=== PATIENT | male | born 1965 | race African-American/Black ===

== ENCOUNTER 2017-09-20 01:20 | Emergency (ER) | payer MEDICAID, OTHER ==
[~2017-09-20] VITALS: Ht 170.2 cm; Wt 95.3 kg
[2017-09-20 02:35] LABS: Basophils # (auto) 0.1 uL; Basophils % (auto) 1.1 % (0.0-2.0); Eosinophils # (auto) 0.2 uL; Eosinophils % (auto) 2.7 % (0.0-7.0); Hematocrit 41.1 % (41.0-53.0); Lymphocytes # (auto) 2.2 uL; Lymphocytes % (auto) 32.8 % (10.0-50.0); Mean Corpuscular Hemoglobin 30.7 pg (28.0-32.0); Mean Corpuscular Hgb Conc. 34.1 g/dL (32.0-36.0); Mean Corpuscular Volume 89.9 fL (80.0-100.0); Mean Platelet Volume 7.6 fL (6.9-10.8); Monocytes # (auto) 0.6 uL; Monocytes % (auto) 9.1 % (0.0-12.0); Neutrophils # (auto) 3.6 uL; Neutrophils % (auto) 54.3 % (37.0-80.0); Platelet Count (auto) 216 10^3/uL (140-450); Red Cell Distribution Width 13.6 % (11.8-14.3); White Blood Cell 6.6 10^3/uL (4.4-10.8)
[2017-09-20 03:05] LABS: Albumin 3.4 g/dL (3.4-5.0); BUN/Creatinine Ratio 9.2; Calcium 8.6 mg/dL (8.5-10.1); Potassium 3.2 mmol/L (3.5-5.1)
[2017-09-20 03:07] LABS: Bilirubin, Total 0.5 mg/dL (0.2-1.0); Total Protein 7.5 g/dL (6.4-8.2)
[2017-09-20 03:51] LABS: Temperature: 22.4 C (20.0-25.0)
[2017-09-20] MEDS ORDERED: cloNIDine HCL 0.1 MG TAB ONE (06:22)
[2017-09-20] MEDS ORDERED: SODIUM CHLORIDE 0.9% 500 ML IV ONE (06:30)
[2017-09-20] MEDS ORDERED: POTASSIUM CHL 20 Meq TABLET PO ONE (06:30)
[2017-09-20] MEDS ORDERED: cloNIDine HCL 0.1 MG TAB PO ONE (06:30)
[2017-09-20 07:45] VITALS: BP 143/97
== END 2017-09-20 07:49 | disposition home or self-care (01) ==
LOC: ER 01:20
DX: I13.0 Hypertensive heart and chronic kidney disease with heart failure and stage 1 through stage 4 chronic kidney disease, or unspecified chronic kidney disease (principal); N18.4 Chronic kidney disease, stage 4 (severe); I50.9 Heart failure, unspecified; R51 Headache
CPT/HCPCS: 36415; 70450; 80053; 83880; 85025

== ENCOUNTER 2019-05-12 18:41 | Emergency (ER) | payer OTHER, MEDICAID ==
[~2019-05-12] VITALS: Ht 167.6 cm; Wt 77.1 kg
[2019-05-12 19:00] VITALS: BP 231/113
== END 2019-05-13 02:24 | disposition left against medical advice (07) ==
LOC: ER 18:42
DX: R03.0 Elevated blood-pressure reading, without diagnosis of hypertension (principal); R51 Headache; Z53.21 Procedure and treatment not carried out due to patient leaving prior to being seen by health care provider
CPT/HCPCS: 70450

== ENCOUNTER 2024-12-06 04:15 | Inpatient (IN) | payer OTHER, MEDICAID ==
[~2024-12-06] VITALS: Ht 167.6 cm; Wt 85.7 kg
[~2024-12-06 04:15] MED LIST: CARV12.544 PO; CINA30TA2 PO; CLON0.2D6 TOP; FLUT50SP EACHNOSTRI; FURO40TA4 PO; LACT10SO3 PO; NIFE1TAB30 PO; PANT40TA57 PO; SUCR5CHW PO; TAMS0.4C39 PO; VALS1TAB57 PO
--- NOTE | 2024-12-06 04:39 | ED.PDOC ---
History of Present Illness HPI Comments 59-year-old male is brought in by ambulance for complaint of shortness a breath, today. Per EMS report patient endorses on sudden unprovoked onset of symptom, this morning. He is reported to have been found with pedal edema, rales, an SpO2 of 81% on room air. En route, patient was placed on CPAP, with SpO2 improving to 100%. Upon arrival to ED, patient still endorses on having difficulty breathing. He has a reported history of CHF, hypertension, and end- stage renal disease, with hemodialysis and peritoneal dialysis on Friday, Friday, and Friday. Patient denies any chest pain, cough, congestion, fever, chills or other associated symptoms or modifiers at this time. Chief Complaint: Shortness of Breath Time Seen by MD: 04:15 Reviewed Notes: Nurses Notes, Wellness Program Administrator Notes, Medications, Allergies Allergies: Coded Allergies: NO KNOWN ALLERGIES (Unverified , 09/20/17) Information Source: Patient, Emergency Med Personnel Mode of Arrival: EMS Severity: Moderate Timing: Hours Duration: Since onset Prehospital treatment: 12 Lead EKG, Voice Instructor, C-Pap Past Medical History PAST MEDICAL HISTORY: CHF, CKF, ESRD (With hemodialysis in peritoneal dialysis on Friday, Friday, and Friday), HTN Surgical History (Other): Right arm fistula, right chest wall Port-A-Cath Family History Family History: Unknown Social History Smoker: Non-Smoker Lives In: Home Respiratory: reports: shortness of breath All Other Systems: Reviewed and Negative (Negative unless otherwise stated above or in HPI) Physical Exam General Appearance: No Apparent Distress, Normal HEENT: Normal ENT Inspection, Pharynx Normal, TMs Normal Neck: Full Range of Motion, Non-Tender, Normal, Normal Inspection Respiratory: Chest Non-Tender, No Accessory Muscle Use, No Respiratory Distress, Rales Cardiovascular: No Edema, No JVD, No Murmur, No Gallop, Normal Peripheral Pulses, Regular Rate/Rhythm Breast Exam: Deferred Gastrointestinal: No Organomegaly, Non Tender, No Pulsatile Mass, Normal Bowel Sounds, Soft Genitalia: Deferred Pelvic: Deferred Rectal: Deferred Extremities: No calf tenderness, Normal capillary refill, Normal inspection, Normal range of motion, Non-tender, No pedal edema Musculoskeletal : Apperance: Normal Neurologic: Alert, fisheries diver II-XII nml as Tested, No Motor Deficits, Normal Affect, Normal Mood, No Sensory Deficits Cerebellar Function: Normal Reflexes: Normal Skin: Dry, Normal Color, Warm Lymphatic: No Adenopathy Was a procedure done? Was a procedure done?: No Differential Dx Considerations may include: CHF exacerbation, fluid retention, upper respiratory infection, viral syndrome, pneumonia, respiratory distress X-Ray, Labs, Meds, VS Vital Signs Date Time Temp Pulse Resp B/P (MAP) Pulse Ox O2 Delivery O2 Flow Rate FiO2 12/06/24 05:19 89 258/147 12/06/24 04:47 279/180 12/06/24 04:43 98 33 100 Bi-Pap+ 30 30 12/06/24 04:42 98.4 98 19 275/180 (211) 100 98.4 12/06/24 04:34 114 12/06/24 04:15 102 126/72 Facial BiPAP Mask 30 12/06/24 04:15 98.4 101 28 126/72 (90) 100 Lab Test 12/06/24 04:56 Range/Units White Blood Count 7.6 4.4-10.8 10^3/uL Red Blood Count 2.65 L 4.5-5.90 10^6/uL Hemoglobin 8.2 L 13.5-17.5 g/dL Hematocrit 24.8 L 41.0-53.0 % Mean Corpuscular Volume 93.6 80.0-100.0 fL Mean Corpuscular Hemoglobin 31.0 28.0-32.0 pg Mean Corpuscular Hemoglobin Concent 33.1 32.0-36.0 g/dL Red Cell Distribution Width 16.2 H 11.8-14.3 % Platelet Count 300 140-450 10^3/uL Mean Platelet Volume 6.5 L 6.9-10.8 fL Neutrophils (%) (Auto) 73.9 37.0-80.0 % Lymphocytes (%) (Auto) 15.5 10.0-50.0 % Monocytes (%) (Auto) 4.8 0.0-12.0 % Eosinophils (%) (Auto) 5.0 0.0-7.0 % Basophils (%) (Auto) 0.8 0.0-2.0 % Neutrophils # (Auto) 5.6 1.6-8.6 10 ^3/uL Lymphocytes # (Auto) 1.2 0.4-5.4 10 ^3/uL Monocytes # (Auto) 0.4 0-1.3 10 ^3/uL Eosinophils # (Auto) 0.4 0-0.8 10 ^3/uL Basophils # (Auto) 0.1 0-0.2 10 ^3/uL Nucleated Red Blood Cells 0.0 % Sodium Level 131 L 136-145 mmol/L Potassium Level 3.8 3.5-5.1 mmol/L Chloride Level 94 L 98-107 mmol/L Carbon Dioxide Level 27 20-31 mmol/L Anion Gap 10 5-15 Blood Urea Nitrogen 37 H 9-23 mg/dL Creatinine 5.42 H 0.700-1.30 mg/dL Glomerular Filtration Rate Calc 11 >90 mL/min BUN/Creatinine Ratio 6.8 L 10.0-20.0 Serum Glucose 110 H 74-106 mg/dL Lactic Acid Level 1.5 0.4-2.0 mmol/L Calcium Level 9.4 8.7-10.4 mg/dL Phosphorus Level 3.8 2.4-5.1 mg/dL Magnesium Level 1.5 L 1.6-2.6 mg/dL Troponin I High Sensitivity 26 </=54 ng/L Current Medications Medications (Trade) Dose Ordered Sig/George Route Start Time Stop Time Status Last Admin Nitroglycerin (Ntrostat Sublingual) 0.4 mg ONCE ONCE SL 12/06/24 04:30 12/06/24 04:31 DC 12/06/24 04:47 Labetalol HCl (Labetalol HCl) 20 mg ONCE ONCE IV 12/06/24 05:15 12/06/24 05:16 DC 12/06/24 05:19 Time of 1ST Reevaluation: 04:45 Reevaluation 1ST: Unchanged Patient Education/Counseling: Diagnosis, Treatment Family Education/Counseling: No Family Present Departure 1 Departure Time of Disposition: 05:47 (Patient with worsening shortness of breath and acute on chronic systolic failure. Patient likely needs dialysis. We will admit patient for further workup) Impression: Primary Impression: Acute dyspnea Additional Impressions: Acute on chronic systolic (congestive) heart failure Acute chest pain Disposition: ADMITTED INPATIENT Admit to: Tele Condition: Serious Critical Care Note Critical Care Time?: Yes Critical care comment: Acute shortness of breath requiring BiPAP Authorized and Performed by: Ralph Harry MD Total critical care time: Approximately 44 minutes Due to a high probability of clinically significant, life threatening deterioration, the patient required my highest level of preparedness to intervene emergently and I personally spent this critical care time directly and personally managing the patient. This critical care time included obtaining a history; examining the patient; pulse oximetry; ordering and review of studies; arranging urgent treatment with development of a management plan; evaluation of patient's response to treatment; frequent reassessment; and, discussions with other providers. This critical care time was performed to assess and manage the high probability of imminent, life-threatening deterioration that could result in multi-organ failure. It was exclusive of separately billable procedures and treating other patients and teaching time. Please see my other sections and the rest of the note for further information on patient assessment and treatment. Stability Stability form required: No Heart Score Heart Score: Heart Score Response (Comments) Value History Moderate Suspicious 1 EKG Repolarization Disturb 1 Age 45-64 1 Risk Factors >3 or Hx ASHD 2 Troponin 1-2 x's Normal limit 1 Total 6 I personally scribed for RALPH HARRY MD ([email or web address]) on 12/06/24 at 04:39. Fawn ctronically submitted by Bill Smith [email or web address]). RALPH HARRY MD Dec 06, 2024 04:39
[2024-12-06 04:43] VITALS: PULSE 98; RESP 33; O2SAT 100
[2024-12-06] MEDS: NITROGLYCERIN 0.4 MG SL TAB SL ONE (04:47)
[2024-12-06 05:09] LABS: Basophils # (auto) 0.1 10 ^3/uL (0-0.2); Eosinophils # (auto) 0.4 10 ^3/uL (0-0.8); Hemoglobin 8.2 g/dL (13.5-17.5); Lymphocytes # (auto) 1.2 10 ^3/uL (0.4-5.4); Monocytes # (auto) 0.4 10 ^3/uL (0-1.3); Neutrophils # (auto) 5.6 10 ^3/uL (1.6-8.6); White Blood Cell 7.6 10^3/uL (4.4-10.8)
[2024-12-06 05:10] LABS: Basophils % (auto) 0.8 % (0.0-2.0); Hematocrit 24.8 % (41.0-53.0); Lymphocytes % (auto) 15.5 % (10.0-50.0); Mean Corpuscular Hgb Conc. 33.1 g/dL (32.0-36.0); Mean Corpuscular Volume 93.6 fL (80.0-100.0); Monocytes % (auto) 4.8 % (0.0-12.0); Neutrophils % (auto) 73.9 % (37.0-80.0); Platelet Count (auto) 300 10^3/uL (140-450); Red Blood Cells 2.65 10^6/uL (4.5-5.90); Red Cell Distribution Width 16.2 % (11.8-14.3)
--- NOTE | 2024-12-06 05:16 | ECG ---
[facility] Test Date: 2024-12-06 Test Time: 04:33:09 Pat Name: SIMONA SUAZO Department: ED Room: 0251T Gender: M [employer] Director: ARNEL : 1965 Requested By: RALPH ABDALLA Order Number: [id number] Reading MD: Tyler Tomas Measurements Intervals [place] Rate: 118 P: 62 CO: 145 QRS: -60 QRSD: 104 T: 57 QT: 335 QTc: 470 Interpretive Statements Sinus tachycardia Left anterior fascicular block Anterior infarct, old Borderline ST depression, lateral leads ST elevation, consider inferior injury Baseline wander in lead(s) III Electronically Signed On 12-11-2024 17:09:33 PST by Tyler Tomas Please click the below link to view image of tracing.
[2024-12-06 05:17] LABS: Potassium 3.8 mmol/L (3.5-5.1)
[2024-12-06 05:18] LABS: Anion Gap 10 (5-15); Calcium 9.4 mg/dL (8.7-10.4); Carbon Dioxide 27 mmol/L (20-31)
[2024-12-06] MEDS: LABETALOL HCL 20 MG/4 ML VL IV ONE (05:19)
[2024-12-06 05:23] LABS: BUN/Creatinine Ratio 6.8 (10.0-20.0)
[2024-12-06 05:24] LABS: Blood Urea Nitrogen 37 mg/dL (9-23); Chloride 94 mmol/L (98-107); Glucose 110 mg/dL (74-106); Sodium 131 mmol/L (136-145)
[2024-12-06 05:25] LABS: Phosphorus 3.8 mg/dL (2.4-5.1)
[2024-12-06 05:41] LABS: Magnesium 1.5 mg/dL (1.6-2.6)
--- NOTE | 2024-12-06 05:43 | DVH ---
CHEST RADIOGRAPH Indication: sob Technique: Single frontal view of the chest was obtained COMPARISON: None FINDINGS: Lines and Tubes: Right tunneled central venous catheter in satisfactory position. Lungs: Diffuse congestion Pleura: No effusion. No pneumothorax. Cardiomediastinal contours: Cardiomegaly Bones: Unremarkable IMPRESSION: Pulmonary vascular congestion.
[2024-12-06] MEDS: MAGNESIUM SULFATE 1GM/100ML 100 ML IV SCH (06:51)
--- NOTE | 2024-12-06 07:25 | DVHHP2 ---
History of Present Illness Reason for Visit: Shortness of breath with chest pain History of Present Illness Crow Deleon SR is a 59-year-old male with past medical history of hypertension, CHF, ESRD on HD (M/W/F), right upper arm fistula, right chest wall Port-A-Cath, appendectomy, and PD catheter that was placed in 2019 who presents to the ED with shortness of breath, chest pain, and pedal edema. Patient's Omaira is at the bedside and states that he woke up short of breath around 3:00 a.m. this morning. She reports that he has been receiving his dialysis without missing any appointments. Patient also reports that he takes iron pills which we maybe why his stool is black. Patient denies any fever, chills, recent trauma or injury, lightheadedness, weakness, dizziness, abdominal pain, nausea, vomiting, and diarrhea. Patient's Omaira states that he had the PD cath placed in and cath is still present because recently he had peritonitis and they had stopped using the PD cath. She also reports that the dialysis cath was supposed to be temporary. Patient denies having any bloody or dark stool however RN at bedside states that she saw dark tarry stool. Cardiovascular: HTN Renal/: Chronic renal failure Past Surgical History: Appendectomy, Other (Right upper arm fistulaRight chest wall Port-A-Cath PD cath placed in 2019) Family History: Other (Mom with heart disease) Smoke: No ALCOHOL: occassional Drugs: None Lives: with Family Domestic Violence: Neg Review of Systems Respiratory: Shortness of breath Cardiovascular: Chest Pain Allergies: Coded Allergies: NO KNOWN ALLERGIES (Unverified , 09/20/17) Medications Current Medications Medications Dose Ordered Sig/George Route Start Time Stop Time Status Last Admin Dose Admin Magnesium Sulfate/ Dextrose 100 ml @ 100 mls/hr Q1H IV 12/06/24 06:45 12/06/24 08:44 12/06/24 06:51 100 MLS/HR Exam Vital Signs Vital Signs Date Time Temp Pulse Resp B/P (MAP) Pulse Ox O2 Delivery O2 Flow Rate FiO2 12/06/24 07:17 76 205/98 Facial BiPAP Mask 30 12/06/24 06:00 98.2 22 100 98.2 General Appearance: Alert, Oriented X3, Cooperative, mild distress HEENT: Atraumatic, PERRLA, EOMI Respiratory: Normal air movement Cardiovascular: Regular rate, Normal S1, Normal S2, No murmurs Abdominal: Normal bowel sounds, Soft, No tenderness, No hepatospenomegaly, No masses Extremities: No cyanosis Skin: No significant lesion Neuro: Normal speech, Normal tone, Sensation intact Psych/Mental Status: Mental status NL, Mood NL Labs/Xrays Labs Test 12/06/24 05:59 12/06/24 04:56 Range/Units Troponin I High Sensitivity 33 </=54 ng/L White Blood Count 7.6 4.4-10.8 10^3/uL Red Blood Count 2.65 L 4.5-5.90 10^6/uL Hemoglobin 8.2 L 13.5-17.5 g/dL Hematocrit 24.8 L 41.0-53.0 % Mean Corpuscular Volume 93.6 80.0-100.0 fL Mean Corpuscular Hemoglobin 31.0 28.0-32.0 pg Mean Corpuscular Hemoglobin Concent 33.1 32.0-36.0 g/dL Red Cell Distribution Width 16.2 H 11.8-14.3 % Platelet Count 300 140-450 10^3/uL Mean Platelet Volume 6.5 L 6.9-10.8 fL Neutrophils (%) (Auto) 73.9 37.0-80.0 % Lymphocytes (%) (Auto) 15.5 10.0-50.0 % Monocytes (%) (Auto) 4.8 0.0-12.0 % Eosinophils (%) (Auto) 5.0 0.0-7.0 % Basophils (%) (Auto) 0.8 0.0-2.0 % Neutrophils # (Auto) 5.6 1.6-8.6 10 ^3/uL Lymphocytes # (Auto) 1.2 0.4-5.4 10 ^3/uL Monocytes # (Auto) 0.4 0-1.3 10 ^3/uL Eosinophils # (Auto) 0.4 0-0.8 10 ^3/uL Basophils # (Auto) 0.1 0-0.2 10 ^3/uL Nucleated Red Blood Cells 0.0 % Sodium Level 131 L 136-145 mmol/L Potassium Level 3.8 3.5-5.1 mmol/L Chloride Level 94 L 98-107 mmol/L Carbon Dioxide Level 27 20-31 mmol/L Anion Gap 10 5-15 Blood Urea Nitrogen 37 H 9-23 mg/dL Creatinine 5.42 H 0.700-1.30 mg/dL Glomerular Filtration Rate Calc 11 >90 mL/min BUN/Creatinine Ratio 6.8 L 10.0-20.0 Serum Glucose 110 H 74-106 mg/dL Lactic Acid Level 1.5 0.4-2.0 mmol/L Calcium Level 9.4 8.7-10.4 mg/dL Phosphorus Level 3.8 2.4-5.1 mg/dL Magnesium Level 1.5 L 1.6-2.6 mg/dL CHEST RADIOGRAPH Indication: sob Technique: Single frontal view of the chest was obtained COMPARISON: None FINDINGS: Lines and Tubes: Right tunneled central venous catheter in satisfactory position. Lungs: Diffuse congestion Pleura: No effusion. No pneumothorax. Cardiomediastinal contours: Cardiomegaly Bones: Unremarkable IMPRESSION: Pulmonary vascular congestion. Assessment/Plan Assessment/Plan Assessment Dyspnea likely due to volume overload Acute hypoxic respiratory failure Chest pain Hypertensive urgency ESRD on HD (M/W/F) Anemia Hyponatremia Hypomagnesemia ? Dark tarry stool, GI bleed History of PD catheter placed in 2019 History of hypertension ? Diabetes History of CHF Plan Admit to [facility] Patient on BiPAP Trend H&H Replete lytes Antihypertensives EKG noted Chest x-ray noted Nitro given ED Labetalol given in ED Phos level Troponin negative x3 Lactic noted ABG noted BNP Diuretics 0.3 mg clonidine x1 ordered per Nephro Stool occult Diet Resume home medications Nephro consult for stat HD Plan discussed with: Patient My Orders Orders - CHEPE ZARATE Procedure Category Date Status Time B-Type Natriuretic LAB 12/06/24 In Process Peptide 06:34 *Dr. Orozco Group CONS 12/06/24 Transmitted -[place] 06:34 Magnesium Sulfate PHA 12/06/24 In Process 1gm/100ml 06:45 Date of Service: Dec 06, 2024 Billing Provider: CHEPE ZARATE Common Visit Codes: [id number] INP/OBS CARE (HIGH) CHEPE ZARATE Dec 06, 2024 07:24
[2024-12-06] MEDS ORDERED: ACETAMINOPHEN 325 MG TAB PO PRN (07:30)
[2024-12-06] MEDS ORDERED: HYDROcodone-ACET 5/325MG TAB PO PRN (07:30)
[2024-12-06] MEDS ORDERED: ONDANSETRON HCL 4 MG/2 ML VIAL IV PRN (07:30)
[2024-12-06 08:20] VITALS: BP 239/124; PULSE 74; O2SAT 100
[2024-12-06 08:21] VITALS: PULSE 72; RESP 12; O2SAT 100
[2024-12-06] MEDS ORDERED: BACL10TA (08:35)
[2024-12-06] MEDS ORDERED: GAB100C (08:35)
[2024-12-06] MEDS ORDERED: ONDA-188 (08:35)
[2024-12-06 08:36] LABS: Base Excess 2.3 mmol/L (-2.0-3.0)
[2024-12-06] MEDS: FUROSEMIDE 40 MG/4 ML VIAL IV ONE (09:08)
[2024-12-06] MEDS: cloNIDine HCL 0.1 MG TAB PO ONE (09:24)
[2024-12-06 09:38] VITALS: BP 230/134; PULSE 74; RESP 22; TEMP 98.2; O2SAT 100
[2024-12-06] MEDS: ISOSORBIDE MONONITRATE 20 MG TAB PO SCH (10:14)
[2024-12-06] MEDS ORDERED: hydrALAZINE HCL 10 MG TAB PO ONE (10:15)
[2024-12-06] MEDS: FERROUS SULFATE 325mg EC TAB PO SCH (10:20)
[2024-12-06] MEDS: CALCITRIOL 0.25 MCG CAP PO SCH (10:20)
[2024-12-06 10:43] LABS: Hepatitis A Ab IgM Negative; Hepatitis B Core IgM Negative (Negative); Hepatitis B Surface Antigen Negative (Negative); Hepatitis C Antibody Negative (Negative)
[2024-12-06] MEDS: hydrALAZINE HCL 20 MG/ML VL IV PRN (10:44)
[2024-12-06] MEDS: hydrALAZINE HCL 25 MG TAB PO ONE (11:00)
[2024-12-06] MEDS: SEVELAMER 800 MG TAB PO SCH (13:16)
[2024-12-06] MEDS: cloNIDine HCL 0.1 MG TAB PO SCH ×2 (13:46→18:00)
--- NOTE | 2024-12-06 14:05 | DVHPN2 ---
Progress Note Date Seen: Dec 06, 2024 Medical Necessity Reason Pt with a Central, PICC or Fol: No Subjective Patient reports: No new complaints Review of Systems: HEENT:Normal, CVS:Normal, RESPIRATORY:Normal, GI:Normal, :Normal, MSK:Normal, NEURO:Normal Objective vital signs Vital Sign Date Time Temp Pulse Resp B/P (MAP) Pulse Ox O2 Delivery O2 Flow Rate FiO2 12/06/24 13:46 173/97 12/06/24 13:00 60 13 100 12/06/24 09:38 98.2 30 98.2 12/06/24 08:21 Bi-Pap+ medications Current Medications Medications Dose Ordered Sig/George Route Start Time Stop Time Status Last Admin Dose Admin Acetaminophen/ Hydrocodone Bitart 1 tab Q4HP PRN PO 12/06/24 07:30 Ondansetron HCl 4 mg Q4HP PRN IV 12/06/24 07:30 Acetaminophen 650 mg Q6HP PRN PO 12/06/24 07:30 Isosorbide Mononitrate 20 mg BID PO 12/06/24 10:00 12/06/24 10:14 20 MG Calcitriol 0.25 mcg DAILY PO 12/06/24 10:00 12/06/24 10:20 0.25 MCG Ferrous Sulfate 325 mg DAILY PO 12/06/24 10:00 12/06/24 10:20 325 MG Sevelamer HCl 800 mg TIDWM PO 12/06/24 12:00 12/06/24 13:16 800 MG Hydralazine HCl 10 mg Q6HP PRN IV 12/06/24 08:30 Epoetin Rodrigo-epbx 8,000 unit POSTDI@2100 SC 12/06/24 21:00 Clonidine HCl 0.3 mg Q8HR PO 12/06/24 14:00 12/06/24 13:46 0.3 MG Clonidine HCl 0.1 mg Q6HPRN PO 12/06/24 18:00 UNV Examination: GENERAL:Normal, HEENT:Normal, NECK:Normal, LUNGS:Normal, LUNGS:Abnormal (on oxygen), CVS:Normal, ABDOMEN:Normal, MSK:Normal, MSK:Abnormal (edema++), SKIN:Normal, NEURO:Normal, :Normal laboratory and microbiology Laboratory Tests 12/06/24 04:56 Test 12/06/24 04:56 Range/Units Serum Glucose 110 H 74-106 mg/dL Problem List/Assessment/Plan Problem List/Assessment/Plan #1 acute resp failure: cont oxygen #2 acute on chronic systolic/diastolic heart failure: dialysis #3 htn: resume clonidine #4 esrd: on hemodialysis, was on pd #5 anemia advance care planning- full code- time spent - 19 mins Plan discussed with: Patient My Orders My Orders Orders - RAFFY KIM MD Procedure Category Date Status Time Clonidine 0.2mg/24hr PHA 12/06/24 Logged 7day Patc (Catapres 13:45 Clonidine Hcl Tablet PHA 12/06/24 Logged (Catapres Tablet) 18:00 Date of Service: Dec 06, 2024 Billing Provider: RAFFY KIM MD Common Visit Codes: [id number] INP/OBS CARE(HIGH) Secondary Visit Codes: [id number] CARE PLAN 30 MINUTES RAFFY KIM MD Dec 06, 2024 14:05
--- NOTE | 2024-12-06 14:12 | DVHINCON2 ---
Date of service: Dec 06, 2024 Reason for Consultation esrd History of Present Illness 59 years old male with past medical history ESRD on hemo dialysis, hypertension, Congestive heart failure previous history of peritonitis when he was on pd presented with complaints of shortness of breath, pedal edema, chest pain his blood pressure was found to be greater than S BP 230 and diastolic greater than 100 Past Medical History As per HPI Past Surgical History Per HPI Allergies: Coded Allergies: Hydralazine (Verified Adverse Reaction, Unknown, RASH, 12/06/24) RASH, SEVERE ITCHING Home Meds Reported Medications Valsartan (Valsartan) 80 Mg Tab, 0.5 TAB PO DAILY 12/06/24 Furosemide (Furosemide) 40 Mg Tab, 1 12/06/24 Nifedipine (Nifedipine Er) 60 Mg Tab 12/06/24 Baclofen (Baclofen) 10 Mg Tab, 1 12/06/24 Fluticasone Propionate (Nasal) (Fluticasone Propionate) 50 Mcg/Act Spr, LIBERTY 12/06/24 Clonidine Hydrochloride (Clonidine Hcl) 0.2 Mg/24 Hr Dis, 1 PATCH TOP QWEEKLY 12/06/24 Ondansetron HCl (Ondansetron Hydrochloride) 4 Mg Tab, 1 12/06/24 Gabapentin (Gabapentin) 100 Mg Cap, 1 12/06/24 Pantoprazole Sodium Sesquihydr (Pantoprazole Sodium Dr) 40 Mg Tab, 1 DAILY 12/06/24 Lactulose (Lactulose) 10 Gm/15 Ml Joelle, ML PO 12/06/24 Carvedilol (Carvedilol) 12.5 Mg Tab 12/06/24 Current Medications Current Medications Medications (Trade) Dose Ordered Sig/George Route PRN Reason Start Time Stop Time Status Last Admin Magnesium Sulfate/ Dextrose 100 ml @ 100 mls/hr Q1H IV 12/06/24 06:45 12/06/24 08:44 DC 12/06/24 08:27 Acetaminophen/ Hydrocodone Bitart (Kent 5/325MG Tab) 1 tab Q4HP PRN PO MODERATE PAIN (4-6 PAIN SCALE) 12/06/24 07:30 Ondansetron HCl (Zofran) 4 mg Q4HP PRN IV NAUSEA / VOMITING 12/06/24 07:30 Acetaminophen (Tylenol Tablet) 650 mg Q6HP PRN PO PAIN SCALE 1-3 OR TEMP>100.4 12/06/24 07:30 Isosorbide Mononitrate (Ismo Tablet) 20 mg BID PO 12/06/24 10:00 12/06/24 14:03 DC 12/06/24 10:14 Calcitriol (Rocaltrol Capsule) 0.25 mcg DAILY PO 12/06/24 10:00 12/06/24 10:20 Ferrous Sulfate 325 mg DAILY PO 12/06/24 10:00 12/06/24 10:20 Sevelamer HCl (Renagel) 800 mg TIDWM PO 12/06/24 12:00 12/06/24 13:16 Hydralazine HCl (Apresoline Injection) 10 mg Q6HP PRN IV SBP>160 12/06/24 08:30 12/06/24 14:03 DC Epoetin Rodrigo-epbx (Retacrit) 8,000 unit POSTDI@2100 SC 12/06/24 21:00 Clonidine HCl (Catapres Tablet) 0.3 mg Q8HR PO 12/06/24 14:00 12/06/24 14:03 DC 12/06/24 13:46 Clonidine HCl (Catapres Tablet) 0.1 mg Q6HPRN PO 12/06/24 18:00 UNV Isosorbide Mononitrate (Imdur Er Tablet) 60 mg DAILY PO 12/07/24 10:00 UNV Clonidine HCl (Catapres Tablet) 0.1 mg Q6HP PRN PO SBP>160 12/06/24 14:00 UNV Review of Systems per hpi H&P Exam Vital Signs/I&O Vital Sign Date Time Temp Pulse Resp B/P (MAP) Pulse Ox O2 Delivery O2 Flow Rate FiO2 12/06/24 13:46 173/97 12/06/24 13:00 60 13 100 12/06/24 09:38 98.2 30 98.2 12/06/24 08:21 Bi-Pap+ Physical Exam General-not in any distress HEENT-normocephalic, no icterus, no pallor, neck supple Respiratory-fair air entry bilateral, [id number]-H2-P8 heard, Abdominal-soft, nontender, nondistended Musculoskeletal-++ pedal edema, no calf tenderness Genitourinary-deferred Neuro-awake alert oriented x3, Psychiatric-not agitated, cooperative, Labs/Diagnostic Data Labs/Diagnostic Data Laboratory Tests Test 12/06/24 09:15 12/06/24 09:02 12/06/24 08:29 12/06/24 08:03 Range/Units Hepatitis A IgM Antibody Negative Hepatitis B Surface Antigen Negative Negative Hepatitis B Core IgM Antibody Negative Negative Hepatitis C Antibody Negative Negative POC Glucose 78 70-106 mg/dl Blood Gas Specimen Type Arterial Blood Gas Sample Site Right radial Blood Gas Patient Temperature 37.0 Arterial Blood Date Drawn [id number] Arterial Blood pH 7.440 7.350-7.450 Arterial Blood Partial Pressure CO2 40.1 35.0-48.0 mmHg Arterial Blood Partial Pressure O2 87.2 83.0-108.0 mmHg Arterial Blood HCO3 26.6 21.0-28.0 mmol/L Arterial Blood Oxygen Saturation 95.7 94.0-98.0 % Arterial Blood Base Excess 2.3 -2.0-3.0 mmol/L Arterial Blood Oxyhemoglobin 94.3 94.0-98.0 % Arterial Blood Carboxyhemoglobin 0.8 0.5-1.5 % Arterial Blood Methemoglobin 0.7 0.0-1.5 % Jb Test Yes Blood Gas Total Hemoglobin 7.10 L 13.5-17.5 g/dL Blood Gas Set Respiration Rate 12.0 Blood Gas Modality Mask - bipap FiO2 % 30.0 Blood Gas EPAP 8 Blood Gas IPAP 16 Troponin I High Sensitivity 46 </=54 ng/L Test 12/06/24 05:59 12/06/24 04:56 Range/Units Troponin I High Sensitivity 33 26 </=54 ng/L White Blood Count 7.6 4.4-10.8 10^3/uL Red Blood Count 2.65 L 4.5-5.90 10^6/uL Hemoglobin 8.2 L 13.5-17.5 g/dL Hematocrit 24.8 L 41.0-53.0 % Mean Corpuscular Volume 93.6 80.0-100.0 fL Mean Corpuscular Hemoglobin 31.0 28.0-32.0 pg Mean Corpuscular Hemoglobin Concent 33.1 32.0-36.0 g/dL Red Cell Distribution Width 16.2 H 11.8-14.3 % Platelet Count 300 140-450 10^3/uL Mean Platelet Volume 6.5 L 6.9-10.8 fL Neutrophils (%) (Auto) 73.9 37.0-80.0 % Lymphocytes (%) (Auto) 15.5 10.0-50.0 % Monocytes (%) (Auto) 4.8 0.0-12.0 % Eosinophils (%) (Auto) 5.0 0.0-7.0 % Basophils (%) (Auto) 0.8 0.0-2.0 % Neutrophils # (Auto) 5.6 1.6-8.6 10 ^3/uL Lymphocytes # (Auto) 1.2 0.4-5.4 10 ^3/uL Monocytes # (Auto) 0.4 0-1.3 10 ^3/uL Eosinophils # (Auto) 0.4 0-0.8 10 ^3/uL Basophils # (Auto) 0.1 0-0.2 10 ^3/uL Nucleated Red Blood Cells 0.0 % Sodium Level 131 L 136-145 mmol/L Potassium Level 3.8 3.5-5.1 mmol/L Chloride Level 94 L 98-107 mmol/L Carbon Dioxide Level 27 20-31 mmol/L Anion Gap 10 5-15 Blood Urea Nitrogen 37 H 9-23 mg/dL Creatinine 5.42 H 0.700-1.30 mg/dL Glomerular Filtration Rate Calc 11 >90 mL/min BUN/Creatinine Ratio 6.8 L 10.0-20.0 Serum Glucose 110 H 74-106 mg/dL Hemoglobin A1c < 3.8 <5.7 % A1C Lactic Acid Level 1.5 0.4-2.0 mmol/L Calcium Level 9.4 8.7-10.4 mg/dL Phosphorus Level 3.8 2.4-5.1 mg/dL Magnesium Level 1.5 L 1.6-2.6 mg/dL B-Type Natriuretic Peptide 936.69 0-100 pg/mL Assessment ESRD on dialysis Hypertensive emergency Congestive heart failure exacerbation Recommendations Blood pressure control Dialysis today UF as tolerated HD tomorrow if possible repeat Plan discussed with: Patient, Spouse MARGARITO LATIF MD Dec 06, 2024 14:12
[2024-12-06] MEDS: cloNIDine 0.2 mg/24hr 7DAY PATCH TD ONE (15:23)
--- NOTE | 2024-12-06 16:02 | ECG ---
[facility] Test Date: 2024-12-06 Test Time: 04:34:03 Pat Name: SIMONA SUAZO Department: ED Room: 0251T Gender: M Windows [employer] Specialist: ARNEL : 1965 Requested By: RALPH ABDALLA Order Number: [id number] Reading MD: Tyler Tomas Measurements Intervals [place] Rate: 114 P: 48 AL: 174 QRS: -42 QRSD: 103 T: 54 QT: 348 QTc: 480 Interpretive Statements Sinus tachycardia Ventricular premature complex Left axis deviation Anterior infarct, old Baseline wander in lead(s) V6 Electronically Signed On 12-11-2024 17:09:41 PST by Tyler Tomas Please click the below link to view image of tracing.
[2024-12-06 19:45] VITALS: PULSE 60; RESP 15; O2SAT 100
[2024-12-06 20:20] LABS: Urine Bacteria None Seen /hpf (None Seen)
[2024-12-06 20:56] LABS: Urine Blood Negative /uL (Negative); Urine Clarity Clear (Clear); Urine Color Light-Yellow (Yellow); Urine Protein, UAD 2+ (Negative); Urine Specific Gravity 1.009 (1.001-1.035); Urine Squamous Epithelial Cell FEW /hpf (<5); Urine Urobilinogen Normal (Negative); Urine WBC 1 /HPF (0-3)
[2024-12-06] MEDS: EPOETIN ALFA-EPBX 4,000 UNIT/ML VIAL SC SCH (21:03)
[2024-12-07] MEDS: cloNIDine HCL 0.1 MG TAB PO PRN (05:38)
--- NOTE | 2024-12-07 05:50 | DVH ---
EXAM: XR Chest, 1 View CLINICAL INDICATION: chf TECHNIQUE: Frontal view of the chest. COMPARISON: XY CHEST PORTABLE on DOS: 12/06/24 FINDINGS: LUNGS AND PLEURAL SPACES: See below. HEART: Cardiomegaly with mild congestion. MEDIASTINUM: Unremarkable. Normal mediastinal contour. BONES/JOINTS: Unremarkable. No acute fracture. TUBES, LINES AND DEVICES: Right internal jugular central venous catheter tip in the superior vena c isidoro. OTHER FINDINGS: . IMPRESSION: Cardiomegaly with mild congestion.
[2024-12-07 06:11] LABS: Alanine Aminotransferase 19 U/L (7-40); Anion Gap 9 (5-15); BUN/Creatinine Ratio 5.9 (10.0-20.0); Calcium 9.1 mg/dL (8.7-10.4); Carbon Dioxide 28 mmol/L (20-31); Glucose 100 mg/dL (74-106); Potassium 3.7 mmol/L (3.5-5.1)
[2024-12-07 06:12] LABS: Aspartate Aminotransferase 17 U/L (13-40)
[2024-12-07 06:13] LABS: Bilirubin, Total 0.4 mg/dL (0.2-1.0)
[2024-12-07 06:40] LABS: Alkaline Phosphatase 121 U/L (46-116); Blood Urea Nitrogen 26 mg/dL (9-23); Chloride 97 mmol/L (98-107); Sodium 134 mmol/L (136-145); Total Protein 5.4 g/dL (5.7-8.2)
[2024-12-07 06:49] LABS: Basophils # (auto) 0 10 ^3/uL (0-0.2); Eosinophils # (auto) 0.3 10 ^3/uL (0-0.8); Lymphocytes # (auto) 0.9 10 ^3/uL (0.4-5.4); Mean Corpuscular Hemoglobin 32.3 pg (28.0-32.0); Monocytes # (auto) 0.4 10 ^3/uL (0-1.3); Neutrophils # (auto) 2.1 10 ^3/uL (1.6-8.6); Nucleated Red Blood Cells % 0.1 %; White Blood Cell 3.7 10^3/uL (4.4-10.8)
[2024-12-07 06:50] LABS: Basophils % (auto) 1.1 % (0.0-2.0); Eosinophils % (auto) 7.7 % (0.0-7.0); Hematocrit 19.7 % (41.0-53.0); Lymphocytes % (auto) 23.9 % (10.0-50.0); Mean Corpuscular Hgb Conc. 34.5 g/dL (32.0-36.0); Mean Corpuscular Volume 93.7 fL (80.0-100.0); Monocytes % (auto) 11.5 % (0.0-12.0); Neutrophils % (auto) 55.8 % (37.0-80.0); Platelet Count (auto) 214 10^3/uL (140-450); Red Blood Cells 2.11 10^6/uL (4.5-5.90)
[2024-12-07 07:38] LABS: Hemoglobin 6.8 g/dL (13.5-17.5)
[2024-12-07 07:50] VITALS: PULSE 53; RESP 13; O2SAT 100
[2024-12-07] MEDS: ISOSORBIDE MONONITRATE ER 60 MG TAB PO SCH (10:00)
--- NOTE | 2024-12-07 10:08 | DVHPN2 ---
Progress Note Date Seen: Dec 07, 2024 Medical Necessity Reason Pt with a Central, PICC or Fol: No Subjective Patient reports: No new complaints Review of Systems: HEENT:Normal, CVS:Normal, RESPIRATORY:Normal, GI:Normal, :Normal, MSK:Normal, NEURO:Normal Objective vital signs Vital Sign Date Time Temp Pulse Resp B/P (MAP) Pulse Ox O2 Delivery O2 Flow Rate FiO2 12/07/24 08:00 60 12/07/24 07:50 13 100 Nasal Cannula* 2 28 12/07/24 07:35 98.1 181/97 (125) 98.1 Total Intake and Output 12/06/24 12/06/24 12/07/24 15:00 23:00 07:00 Intake Total 200 ml Output Total 100 ml 500 ml Balance 100 ml -500 ml medications Current Medications Medications Dose Ordered Sig/George Route Start Time Stop Time Status Last Admin Dose Admin Acetaminophen/ Hydrocodone Bitart 1 tab Q4HP PRN PO 12/06/24 07:30 Ondansetron HCl 4 mg Q4HP PRN IV 12/06/24 07:30 Acetaminophen 650 mg Q6HP PRN PO 12/06/24 07:30 Calcitriol 0.25 mcg DAILY PO 12/06/24 10:00 12/06/24 10:20 0.25 MCG Ferrous Sulfate 325 mg DAILY PO 12/06/24 10:00 12/06/24 10:20 325 MG Sevelamer HCl 800 mg TIDWM PO 12/06/24 12:00 12/07/24 08:42 800 MG Epoetin Rodrigo-epbx 8,000 unit POSTDI@2100 [place] 12/06/24 21:00 12/06/24 21:03 8,000 UNIT Clonidine HCl 0.1 mg Q6HR PO 12/06/24 18:00 12/07/24 05:38 0.1 MG Isosorbide Mononitrate 60 mg DAILY PO 12/07/24 10:00 Clonidine HCl 0.1 mg Q6HP PRN PO 12/06/24 14:00 12/07/24 05:38 0.1 MG Examination: GENERAL:Normal, HEENT:Normal, NECK:Normal, LUNGS:Normal, LUNGS:Abnormal (on oxygen), CVS:Normal, ABDOMEN:Normal, MSK:Normal, SKIN:Normal, NEURO:Normal, :Normal laboratory and microbiology Laboratory Tests 12/07/24 06:40 12/07/24 05:10 Test 12/07/24 05:10 Range/Units Serum Glucose 100 74-106 mg/dL Problem List/Assessment/Plan Problem List/Assessment/Plan #1 acute resp failure: cont oxygen #2 acute on chronic systolic/diastolic heart failure: dialysis #3 hypertensive urgency: adjust meds #4 esrd: on hemodialysis, was on pd #5 anemia: transfuse advance care planning- full code- time spent - 19 mins Plan discussed with: Patient My Orders My Orders Orders - RAFFY KIM MD Procedure Category Date Status Time Clonidine Hcl Tablet PHA 12/06/24 In Process (Catapres Tablet) 18:00 Isosorbide PHA 12/07/24 In Process Mononitrate Tablet 10:00 Clonidine Hcl Tablet PHA 12/06/24 In Process (Catapres Tablet) 14:00 Urinalysis LAB 12/06/24 Uncollected 13:59 Chest Portable XY 12/07/24 Resulted 06:00 Echo 2d Mode Cardiac US 12/07/24 Logged DOP 13:59 Obtain Consent For: ORDERS 12/07/24 Transmitted 09:01 Packedcell-Noactive BBK 12/07/24 Logged Bleeding 09:01 Type And Screen BBK 12/07/24 Logged 09:01 Transfer Orders XFER 12/07/24 Verified 10:03 Nifedipine Er PHA 12/07/24 Verified (Procardia Xl 10:15 Nifedipine Er PHA 12/08/24 Verified (Procardia Xl 10:00 Date of Service: Dec 07, 2024 Billing Provider: RAFFY KIM MD Common Visit Codes: [id number] INP/OBS CARE(HIGH) RAFFY KIM MD Dec 07, 2024 10:08
[2024-12-07] MEDS: SODIUM CHL 0.9% 1000 ML BAG XX ONE (10:15)
[2024-12-07] MEDS: LABETALOL HCL 20 MG/4 ML VL IV PRN (10:38)
[2024-12-07] MEDS: NIFEdipine ER 30 MG TAB PO ONE (10:43)
[2024-12-07] MEDS: FUROSEMIDE 40 MG TAB PO ONE (10:43)
[2024-12-07] MEDS: PANTOPRAZOLE 40 MG TAB PO ONE (10:43)
[2024-12-07 12:00] VITALS: BP 176/92; PULSE 52; RESP 12; TEMP 97.9
[2024-12-07 12:20] VITALS: BP 189/94; PULSE 52; RESP 11; TEMP 97.7
[2024-12-07 12:37] VITALS: BP 195/103; PULSE 53; RESP 13; TEMP 97.8
[2024-12-07 20:00] VITALS: PULSE 71; RESP 13; O2SAT 100
--- NOTE | 2024-12-07 20:09 | DVHPN2 ---
Progress Note Date Seen: Dec 07, 2024 Medical Necessity Reason Pt with a Central, PICC or Fol: No Subjective Patient reports: No new complaints, Feels better Review of Systems: HEENT:Normal, CVS:Normal, RESPIRATORY:Normal, GI:Normal, :Normal, MSK:Normal, NEURO:Normal Objective vital signs Vital Sign Date Time Temp Pulse Resp B/P (MAP) Pulse Ox O2 Delivery O2 Flow Rate FiO2 12/07/24 18:00 56 15 187/99 (128) 100 12/07/24 12:37 97.8 97.8 12/07/24 07:50 Nasal Cannula* 2 28 Total Intake and Output 12/06/24 12/06/24 12/07/24 15:00 23:00 07:00 Intake Total 200 ml Output Total 100 ml 500 ml Balance 100 ml -500 ml medications Current Medications Medications Dose Ordered Sig/George Route Start Time Stop Time Status Last Admin Dose Admin Acetaminophen/ Hydrocodone Bitart 1 tab Q4HP PRN PO 12/06/24 07:30 Ondansetron HCl 4 mg Q4HP PRN IV 12/06/24 07:30 Acetaminophen 650 mg Q6HP PRN PO 12/06/24 07:30 Calcitriol 0.25 mcg DAILY PO 12/06/24 10:00 12/06/24 10:20 0.25 MCG Ferrous Sulfate 325 mg DAILY PO 12/06/24 10:00 12/06/24 10:20 325 MG Sevelamer HCl 800 mg TIDWM PO 12/06/24 12:00 12/07/24 18:13 800 MG Epoetin Rodrigo-epbx 8,000 unit POSTDI@2100 [place] 12/06/24 21:00 12/06/24 21:03 8,000 UNIT Isosorbide Mononitrate 60 mg DAILY PO 12/07/24 10:00 12/07/24 15:42 60 MG Clonidine HCl 0.1 mg Q6HP PRN PO 12/06/24 14:00 12/07/24 12:44 0.1 MG Nifedipine 60 mg DAILY PO 12/08/24 10:00 Labetalol HCl 10 mg Q4HP PRN IV 12/07/24 10:15 12/07/24 10:38 10 MG Furosemide 40 mg DAILY PO 12/08/24 10:00 Pantoprazole Sodium 40 mg DAILY@0600 PO 12/08/24 06:00 Examination: GENERAL:Normal, HEENT:Normal, NECK:Normal, LUNGS:Abnormal, CVS:Normal, ABDOMEN:Normal, MSK:Normal, SKIN:Normal, NEURO:Normal, :Normal laboratory and microbiology Laboratory Tests 12/07/24 06:40 12/07/24 05:10 Test 12/07/24 05:10 Range/Units Serum Glucose 100 74-106 mg/dL Problem List/Assessment/Plan Problem List/Assessment/Plan ESRD on dialysis Hypertensive emergency Congestive heart failure exacerbation Recommendations Blood pressure control seen on Dialysis today UF as tolerated Plan discussed with: Patient My Orders My Orders Orders - MARGARITO LATIF MD Procedure Category Date Status Time Communication Order ORDERS 12/07/24 Transmitted 12:00 CC Plasma Assessment Blood Product Administration S: [id number] MARGARITO LATIF MD Dec 07, 2024 20:09
[2024-12-07 22:22] VITALS: BP 156/82; PULSE 70; RESP 19; TEMP 98; O2SAT 98
[2024-12-08] VITALS (8 sets, daily range): BP systolic 147–210; BP diastolic 79–113; PULSE 64–76; RESP 17–20; TEMP 97.4–98.1; O2SAT 93–100
[2024-12-08] MEDS: PANTOPRAZOLE 40 MG TAB PO SCH (05:21)
[2024-12-08 06:59] LABS: Basophils # (auto) 0 10 ^3/uL (0-0.2); Eosinophils # (auto) 0.3 10 ^3/uL (0-0.8); Hemoglobin 7.3 g/dL (13.5-17.5); Lymphocytes # (auto) 1.1 10 ^3/uL (0.4-5.4); Lymphocytes % (auto) 22.5 % (10.0-50.0); Monocytes # (auto) 0.5 10 ^3/uL (0-1.3); Neutrophils # (auto) 2.8 10 ^3/uL (1.6-8.6); White Blood Cell 4.7 10^3/uL (4.4-10.8)
[2024-12-08 07:01] LABS: Basophils % (auto) 0.9 % (0.0-2.0); Eosinophils % (auto) 6.5 % (0.0-7.0); Hematocrit 20.6 % (41.0-53.0); Mean Corpuscular Hemoglobin 32.6 pg (28.0-32.0); Mean Corpuscular Hgb Conc. 35.6 g/dL (32.0-36.0); Mean Corpuscular Volume 91.6 fL (80.0-100.0); Monocytes % (auto) 10.1 % (0.0-12.0); Platelet Count (auto) 211 10^3/uL (140-450); Red Blood Cells 2.24 10^6/uL (4.5-5.90); Red Cell Distribution Width 15.6 % (11.8-14.3)
[2024-12-08 07:16] LABS: Anion Gap 8 (5-15); Carbon Dioxide 29 mmol/L (20-31); INR 1.09 (0.9-1.15); Partial Thromboplastin Time 30.3 SEC (24.5-34.5); Prothrombin Time 11.5 sec (9.3-11.8)
[2024-12-08 07:17] LABS: Calcium 8.8 mg/dL (8.7-10.4); Chloride 95 mmol/L (98-107); Potassium 3.4 mmol/L (3.5-5.1); Sodium 132 mmol/L (136-145)
[2024-12-08 07:22] LABS: BUN/Creatinine Ratio 5.6 (10.0-20.0); Blood Urea Nitrogen 21 mg/dL (9-23); Glucose 87 mg/dL (74-106)
--- NOTE | 2024-12-08 08:43 | CONS ---
Pharmacy Clinical Information: From Heart Failure Fallout Report on CQM Application, Pancho GONZALEZCrow is a 59 year old male with PMH of HTN,CHF, ESRD. It is unclear if patient has history of diabetes, but his HbA1c is <3.8% and his serum glucose < 130 md/dL. According to the 2024 ADA guidelines, insulin and/or other glucose lowering therapies should be initiated or intensified for treatment of persistent hyperglycemia (>180 mg/dL) in hospitalized patients. Therefore, initiation of an antihyperglycemic drug is not recommended at this time. It is unclear if patient has history of dyslipidemia, and there is no lipid panel available. Unable to determine if initiation of a statin is appropriate at this time. OARL ALSTON PHARMACIST Dec 08, 2024 08:43
[2024-12-08] MEDS: NIFEdipine ER 30 MG TAB PO SCH (09:42)
[2024-12-08] MEDS: FUROSEMIDE 40 MG TAB PO SCH (09:42)
[2024-12-08] MEDS ORDERED: hydrALAZINE HCL 25 MG TAB PO PRN (10:00)
[2024-12-08] MEDS: NIFEdipine ER 30 MG TAB PO ONE (11:30)
--- NOTE | 2024-12-08 16:24 | DVHSR ---
APPROVED REPORT EXAM: Two-dimensional and M-mode echocardiogram with Doppler and color Doppler. Blood Pressure: 181/97 mmHg INDICATION chf RISK FACTORS Height: 5'6, Weight: 170 DIMENSIONS LVDd4.9 (3.8-5.7cm)LA (2D)4.2 (1.9-4.0cm)Aortic Root3.4 (2.0-3.7cm) LVDs3.0 (2.5-4.0cm)LA (MM) (1.9-4.0cm)Aortic Cusp Exc1.5 (1.5-2.0cm) EF (%) 68.0 (55-70%)Rt. Atrium4.9 (1.9-4.0cm)Asc. Aorta3.6 cm IVSd1.1 (0.7-1.1cm)RV (D)3.9 (1.8-2.4cm) PWd1.5 (0.7-1.1cm) Mitral Valve MitralMitral Stenosis E wave0.92m/sMV Mean GR.mmHg A wave0.54m/sMV Peak GR.138mmHg E/A ratio1.72D MVAcm2 DECEL [id number] 1/2 Timems Aortic Valve Aortic ValveAortic Stenosis V11.08m/David Mean GR.4mmHg V21.36m/David Peak GR.7mmHg LVOT Diameter2.1 (1.8-2.4cm)Doppler AVA2.75cm2 Pulmonic Valve V21.14m/s Tricuspid Valve TR Velocity2.83m/s [id number] Conclusion Sinus rhythm. Biatrial enlargement. Concentric LVH. Valves are normal. EF of 60% with normal RV function. Doppler is unremarkable with mild TR. No pericardial effusion masses or vegetations. Impaired diastolic relaxation noted
[2024-12-08 17:32] LABS: Urine Bacteria None Seen /hpf (None Seen)
[2024-12-08 17:59] LABS: Urine Blood Negative /uL (Negative); Urine Clarity Clear (Clear); Urine Color Light-Yellow (Yellow); Urine Protein, UAD 1+ (Negative); Urine Specific Gravity 1.007 (1.001-1.035); Urine Squamous Epithelial Cell None Seen /hpf (<5); Urine Urobilinogen Normal (Negative); Urine WBC 6 /HPF (0-3)
[2024-12-08] MEDS: TAMSULOSIN HYDROCHLORIDE 0.4 MG CAP PO SCH (21:57)
[2024-12-09] VITALS (8 sets, daily range): BP systolic 153–183; BP diastolic 82–115; PULSE 59–76; RESP 16–20; TEMP 97.8–98.7; O2SAT 98–100
[2024-12-09] MEDS: NIFEdipine ER 30 MG TAB PO SCH (08:39)
--- NOTE | 2024-12-09 14:22 | DVHPN2 ---
Progress Note Date Seen: Dec 09, 2024 Medical Necessity Reason Pt with a Central, PICC or Fol: No Subjective Patient reports: No new complaints Review of Systems: HEENT:Normal, CVS:Normal, RESPIRATORY:Normal, GI:Normal, :Normal, MSK:Normal, NEURO:Normal Objective vital signs Vital Sign Date Time Temp Pulse Resp B/P (MAP) Pulse Ox O2 Delivery O2 Flow Rate FiO2 12/09/24 13:00 97.9 59 18 183/106 (131) 100 97.9 12/09/24 08:00 Room Air* 0 21 Total Intake and Output 12/08/24 12/08/24 12/09/24 15:00 23:00 07:00 Intake Total 350 ml 710 ml 380 ml Output Total 500 ml Balance 350 ml 710 ml -120 ml medications Current Medications Medications Dose Ordered Sig/George Route Start Time Stop Time Status Last Admin Dose Admin Acetaminophen/ Hydrocodone Bitart 1 tab Q4HP PRN PO 12/06/24 07:30 Ondansetron HCl 4 mg Q4HP PRN IV 12/06/24 07:30 Acetaminophen 650 mg Q6HP PRN PO 12/06/24 07:30 Calcitriol 0.25 mcg DAILY PO 12/06/24 10:00 12/09/24 08:39 0.25 MCG Ferrous Sulfate 325 mg DAILY PO 12/06/24 10:00 12/09/24 08:38 325 MG Sevelamer HCl 800 mg TIDWM PO 12/06/24 12:00 12/09/24 12:01 800 MG Epoetin Rodrigo-epbx 8,000 unit POSTDI@2100 [place] 12/06/24 21:00 12/08/24 21:56 8,000 UNIT Isosorbide Mononitrate 60 mg DAILY PO 12/07/24 10:00 12/09/24 08:38 60 MG Clonidine HCl 0.1 mg Q6HP PRN PO 12/06/24 14:00 12/09/24 12:07 0.1 MG Labetalol HCl 10 mg Q4HP PRN IV 12/07/24 10:15 12/09/24 05:24 10 MG Furosemide 40 mg DAILY PO 12/08/24 10:00 12/09/24 08:40 40 MG Pantoprazole Sodium 40 mg DAILY@0600 PO 12/08/24 06:00 12/09/24 05:24 40 MG Nifedipine 90 mg DAILY PO 12/09/24 10:00 12/09/24 08:39 90 MG Tamsulosin HCl 0.4 mg HS PO 12/08/24 22:00 12/08/24 21:57 0.4 MG Examination: GENERAL:Normal, HEENT:Normal, NECK:Normal, LUNGS:Normal, CVS:Normal, ABDOMEN:Normal, MSK:Normal, SKIN:Normal, NEURO:Normal, :Normal laboratory and microbiology Laboratory Tests 12/08/24 05:54 Test 12/08/24 05:54 Range/Units Serum Glucose 87 74-106 mg/dL Problem List/Assessment/Plan Problem List/Assessment/Plan #1 acute resp failure: cont oxygen #2 acute on chronic systolic/diastolic heart failure: dialysis #3 hypertensive urgency: adjust meds #4 esrd: on hemodialysis, was on pd #5 anemia: transfuse, stool occult blood dw Omaira plan of care advance care planning- full code- time spent - 19 mins Plan discussed with: Patient, Spouse My Orders My Orders Orders - RAFFY KIM MD Procedure Category Date Status Time Tamsulosin PHA 12/08/24 In Process Hydrochloride (Flomax) 22:00 Date of Service: Dec 09, 2024 Billing Provider: RAFFY KIM MD Common Visit Codes: [id number] INP/OBS CARE(HIGH) CC Plasma Assessment Blood Product Administration S: [id number] RAFFY KIM MD Dec 09, 2024 14:22
[2024-12-09] MEDS ORDERED: cloNIDine 0.2 mg/24hr 7DAY PATCH TD ONE (14:30)
[2024-12-09] MEDS: cloNIDine 0.2 mg/24hr 7DAY PATCH TD SCH (14:56)
[2024-12-09] MEDS: CARVEDILOL 12.5 MG TAB PO ONE (14:57)
--- NOTE | 2024-12-09 16:39 | DVHPN2 ---
Progress Note Date Seen: Dec 09, 2024 Medical Necessity Reason Pt with a Central, PICC or Fol: No Subjective Patient reports: No new complaints Review of Systems: Deferred Objective vital signs Vital Sign Date Time Temp Pulse Resp B/P (MAP) Pulse Ox O2 Delivery O2 Flow Rate FiO2 12/09/24 14:57 62 159/93 12/09/24 13:00 97.9 18 100 97.9 12/09/24 08:00 Room Air* 0 21 Total Intake and Output 12/08/24 12/08/24 12/09/24 15:00 23:00 07:00 Intake Total 350 ml 710 ml 380 ml Output Total 500 ml Balance 350 ml 710 ml -120 ml medications Current Medications Medications Dose Ordered Sig/George Route Start Time Stop Time Status Last Admin Dose Admin Acetaminophen/ Hydrocodone Bitart 1 tab Q4HP PRN PO 12/06/24 07:30 Ondansetron HCl 4 mg Q4HP PRN IV 12/06/24 07:30 Acetaminophen 650 mg Q6HP PRN PO 12/06/24 07:30 Calcitriol 0.25 mcg DAILY PO 12/06/24 10:00 12/09/24 08:39 0.25 MCG Ferrous Sulfate 325 mg DAILY PO 12/06/24 10:00 12/09/24 08:38 325 MG Sevelamer HCl 800 mg TIDWM PO 12/06/24 12:00 12/09/24 12:01 800 MG Epoetin Rodrigo-epbx 8,000 unit POSTDI@2100 [place] 12/06/24 21:00 12/08/24 21:56 8,000 UNIT Isosorbide Mononitrate 60 mg DAILY PO 12/07/24 10:00 12/09/24 08:38 60 MG Clonidine HCl 0.1 mg Q6HP PRN PO 12/06/24 14:00 12/09/24 12:07 0.1 MG Labetalol HCl 10 mg Q4HP PRN IV 12/07/24 10:15 12/09/24 05:24 10 MG Furosemide 40 mg DAILY PO 12/08/24 10:00 12/09/24 08:40 40 MG Pantoprazole Sodium 40 mg DAILY@0600 PO 12/08/24 06:00 12/09/24 05:24 40 MG Nifedipine 90 mg DAILY PO 12/09/24 10:00 12/09/24 08:39 90 MG Tamsulosin HCl 0.4 mg HS PO 12/08/24 22:00 12/08/24 21:57 0.4 MG Carvedilol 12.5 mg Q12HR PO 12/09/24 22:00 Clonidine HCl 0.2 mg Q7D TD 12/09/24 14:30 12/09/24 14:56 0.2 MG Examination: GENERAL:Normal, HEENT:Normal, NECK:Normal, LUNGS:Abnormal, CVS:Normal, ABDOMEN:Normal, MSK:Normal, SKIN:Normal, NEURO:Normal, :Normal laboratory and microbiology Laboratory Tests 12/08/24 05:54 Test 12/08/24 05:54 Range/Units Serum Glucose 87 74-106 mg/dL Problem List/Assessment/Plan Problem List/Assessment/Plan ESRD on dialysis Hypertensive emergency Congestive heart failure exacerbation Recommendations HD tomorrow Blood pressure control UF as tolerated Plan discussed with: Patient CC Plasma Assessment Blood Product Administration S: [id number] MARGARITO LATIF MD Dec 09, 2024 16:39
[2024-12-09] MEDS: LACTULOSE 20Gm/30ML SOLN PO ONE (18:06)
[2024-12-09] MEDS: DOCUSATE SOD 100 MG CAP PO ONE (18:06)
[2024-12-09] MEDS: CARVEDILOL 12.5 MG TAB PO SCH (21:23)
[2024-12-10] VITALS (8 sets, daily range): BP systolic 128–198; BP diastolic 72–109; PULSE 53–96; RESP 18–20; TEMP 36.8; O2SAT 96–100
[2024-12-10 06:34] LABS: Basophils # (auto) 0 10 ^3/uL (0-0.2); Eosinophils # (auto) 0.4 10 ^3/uL (0-0.8); Hemoglobin 7.6 g/dL (13.5-17.5); Lymphocytes # (auto) 1.1 10 ^3/uL (0.4-5.4); Monocytes # (auto) 0.4 10 ^3/uL (0-1.3); Neutrophils # (auto) 2.5 10 ^3/uL (1.6-8.6); Nucleated Red Blood Cells % 0.1 %; Red Blood Cells 2.33 10^6/uL (4.5-5.90); White Blood Cell 4.4 10^3/uL (4.4-10.8)
[2024-12-10 06:39] LABS: Basophils % (auto) 0.9 % (0.0-2.0); Eosinophils % (auto) 8.6 % (0.0-7.0); Hematocrit 21.4 % (41.0-53.0); Lymphocytes % (auto) 24.3 % (10.0-50.0); Mean Corpuscular Hemoglobin 32.4 pg (28.0-32.0); Mean Corpuscular Hgb Conc. 35.4 g/dL (32.0-36.0); Mean Corpuscular Volume 91.5 fL (80.0-100.0); Monocytes % (auto) 9.4 % (0.0-12.0); Neutrophils % (auto) 56.8 % (37.0-80.0); Platelet Count (auto) 218 10^3/uL (140-450); Red Cell Distribution Width 15.4 % (11.8-14.3)
[2024-12-10 06:58] LABS: Anion Gap 4 (5-15); Carbon Dioxide 27 mmol/L (20-31); Chloride 98 mmol/L (98-107); Potassium 3.7 mmol/L (3.5-5.1)
[2024-12-10 07:00] LABS: Calcium 9.1 mg/dL (8.7-10.4)
[2024-12-10 07:05] LABS: BUN/Creatinine Ratio 5.7 (10.0-20.0); Glucose 89 mg/dL (74-106)
[2024-12-10 07:08] LABS: Blood Urea Nitrogen 32 mg/dL (9-23); Sodium 129 mmol/L (136-145)
--- NOTE | 2024-12-10 08:37 | DVHPN2 ---
Progress Note Date Seen: Dec 10, 2024 Medical Necessity Reason Pt with a Central, PICC or Fol: No Subjective Patient reports: No new complaints Review of Systems: Deferred Objective vital signs Vital Sign Date Time Temp Pulse Resp B/P (MAP) Pulse Ox O2 Delivery O2 Flow Rate FiO2 12/10/24 05:35 183/107 12/10/24 05:00 98.0 74 19 98 98.0 12/09/24 20:00 Room Air* 0 21 Total Intake and Output 12/09/24 12/09/24 12/10/24 15:00 23:00 07:00 Intake Total 950 ml 0 ml 120 ml Output Total 800 ml 600 ml Balance 950 ml -800 ml -480 ml medications Current Medications Medications Dose Ordered Sig/George Route Start Time Stop Time Status Last Admin Dose Admin Acetaminophen/ Hydrocodone Bitart 1 tab Q4HP PRN PO 12/06/24 07:30 Ondansetron HCl 4 mg Q4HP PRN IV 12/06/24 07:30 Acetaminophen 650 mg Q6HP PRN PO 12/06/24 07:30 Calcitriol 0.25 mcg DAILY PO 12/06/24 10:00 12/09/24 08:39 0.25 MCG Ferrous Sulfate 325 mg DAILY PO 12/06/24 10:00 12/09/24 08:38 325 MG Sevelamer HCl 800 mg TIDWM PO 12/06/24 12:00 12/09/24 18:06 800 MG Epoetin Rodrigo-epbx 8,000 unit POSTDI@2100 [place] 12/06/24 21:00 12/09/24 21:22 8,000 UNIT Isosorbide Mononitrate 60 mg DAILY PO 12/07/24 10:00 12/09/24 08:38 60 MG Clonidine HCl 0.1 mg Q6HP PRN PO 12/06/24 14:00 12/10/24 04:35 0.1 MG Labetalol HCl 10 mg Q4HP PRN IV 12/07/24 10:15 12/09/24 05:24 10 MG Furosemide 40 mg DAILY PO 12/08/24 10:00 12/09/24 08:40 40 MG Pantoprazole Sodium 40 mg DAILY@0600 PO 12/08/24 06:00 12/10/24 05:58 40 MG Nifedipine 90 mg DAILY PO 12/09/24 10:00 12/09/24 08:39 90 MG Tamsulosin HCl 0.4 mg HS PO 12/08/24 22:00 12/09/24 21:22 0.4 MG Carvedilol 12.5 mg Q12HR PO 12/09/24 22:00 12/09/24 21:23 12.5 MG Clonidine HCl 0.2 mg Q7D TD 12/09/24 14:30 12/09/24 14:56 0.2 MG Examination: LUNGS:Abnormal, MSK:Abnormal laboratory and microbiology Laboratory Tests 12/10/24 06:06 Test 12/10/24 06:06 Range/Units Serum Glucose 89 74-106 mg/dL Problem List/Assessment/Plan Problem List/Assessment/Plan ESRD on dialysis Hypertensive emergency acute on chronic Congestive heart failure exacerbation Recommendations HD today Blood pressure control UF as tolerated Plan discussed with: Patient My Orders My Orders Orders - MARGARITO LATIF MD Procedure Category Date Status Time Hemodialysis Orders ORDERS 12/10/24 Transmitted 04:00 CC Plasma Assessment Blood Product Administration S: [id number] MARGARITO LATIF MD Dec 10, 2024 08:37
--- NOTE | 2024-12-10 11:11 | DVHDS2 ---
Discharge Summary Date of Admission Dec 06, 2024 at 07:20 Date of Discharge: Dec 10, 2024 Admitting Diagnosis Acute hypoxic respiratory failure Labs/Diagnostic Data: Laboratory Results Test 12/10/24 06:06 12/08/24 17:31 12/08/24 05:54 12/07/24 05:10 White Blood Count 4.4 10^3/uL (4.4-10.8) Red Blood Count 2.33 10^6/uL (4.5-5.90) Hemoglobin 7.6 g/dL (13.5-17.5) Hematocrit 21.4 % (41.0-53.0) Mean Corpuscular Volume 91.5 fL (80.0-100.0) Mean Corpuscular Hemoglobin 32.4 pg (28.0-32.0) Mean Corpuscular Hemoglobin Concent 35.4 g/dL (32.0-36.0) Red Cell Distribution Width 15.4 % (11.8-14.3) Platelet Count 218 10^3/uL (140-450) Mean Platelet Volume 6.3 fL (6.9-10.8) Neutrophils (%) (Auto) 56.8 % (37.0-80.0) Lymphocytes (%) (Auto) 24.3 % (10.0-50.0) Monocytes (%) (Auto) 9.4 % (0.0-12.0) Eosinophils (%) (Auto) 8.6 % (0.0-7.0) Basophils (%) (Auto) 0.9 % (0.0-2.0) Neutrophils # (Auto) 2.5 10 ^3/uL (1.6-8.6) Lymphocytes # (Auto) 1.1 10 ^3/uL (0.4-5.4) Monocytes # (Auto) 0.4 10 ^3/uL (0-1.3) Eosinophils # (Auto) 0.4 10 ^3/uL (0-0.8) Basophils # (Auto) 0 10 ^3/uL (0-0.2) Nucleated Red Blood Cells 0.1 % Sodium Level 129 mmol/L (136-145) Potassium Level 3.7 mmol/L (3.5-5.1) Chloride Level 98 mmol/L (98-107) Carbon Dioxide Level 27 mmol/L (20-31) Anion Gap 4 (5-15) Blood Urea Nitrogen 32 mg/dL (9-23) Creatinine 5.61 mg/dL (0.700-1.30) Glomerular Filtration Rate Calc 11 mL/min (>90) BUN/Creatinine Ratio 5.7 (10.0-20.0) Serum Glucose 89 mg/dL (74-106) Calcium Level 9.1 mg/dL (8.7-10.4) Urine Color Light-yellow (Yellow) Urine Clarity Clear (Clear) Urine pH 8.0 (5.0-9.0) Urine Specific [place] 1.007 (1.001-1.035) Urine Protein 1+ (Negative) Urine Ketones Negative (Negative) Urine Blood Negative /uL (Negative) Urine Nitrite Negative (Negative) Urine Bilirubin Negative (Negative) Urine Urobilinogen Normal mg/dL (Negative) Urine Leukocyte Esterase Negative /uL (Negative) Urine RBC 5 /hpf (0 - 3) Urine Microscopic WBC 6 /HPF (0-3) Urine Squamous Epithelial Cells None seen /hpf (<5) Urine Bacteria None seen /hpf (None Seen) Urine Glucose Trace mg/dL (Normal) Prothrombin Time 11.5 sec (9.3-11.8) Prothrombin Time INR 1.09 (0.9-1.15) Activated Partial Thromboplast Time 30.3 SEC (24.5-34.5) Total Bilirubin 0.4 mg/dL (0.2-1.0) Aspartate Amino Transferase (AST) 17 U/L (13-40) Alanine Aminotransferase (ALT) 19 U/L (7-40) Alkaline Phosphatase 121 U/L (46-116) Total Protein 5.4 g/dL (5.7-8.2) Albumin 3.0 g/dL (3.2-4.8) Test 12/06/24 22:06 12/06/24 09:15 12/06/24 09:02 12/06/24 08:29 Stool Occult Blood Negative (Negative) Stool Occult Blood Sample #3 (Negative) Hepatitis A IgM Antibody Negative Hepatitis B Surface Antigen Negative (Negative) Hepatitis B Core IgM Antibody Negative (Negative) Hepatitis C Antibody Negative (Negative) POC Glucose 78 mg/dl (70-106) Blood Gas Specimen Type Arterial Blood Gas Sample Site Right radial Blood Gas Patient Temperature 37.0 Arterial Blood Date Drawn [id number] Arterial Blood pH 7.440 (7.350-7.450) Arterial Blood Partial Pressure CO2 40.1 mmHg (35.0-48.0) Arterial Blood Partial Pressure O2 87.2 mmHg (83.0-108.0) Arterial Blood HCO3 26.6 mmol/L (21.0-28.0) Arterial Blood Oxygen Saturation 95.7 % (94.0-98.0) Arterial Blood Base Excess 2.3 mmol/L (-2.0-3.0) Arterial Blood Oxyhemoglobin 94.3 % (94.0-98.0) Arterial Blood Carboxyhemoglobin 0.8 % (0.5-1.5) Arterial Blood Methemoglobin 0.7 % (0.0-1.5) Jb Test Yes Blood Gas Total Hemoglobin 7.10 g/dL (13.5-17.5) Blood Gas Set Respiration Rate 12.0 Blood Gas Modality Mask - bipap FiO2 % 30.0 Blood Gas EPAP 8 Blood Gas IPAP 16 Test 12/06/24 08:03 12/06/24 04:56 Troponin I High Sensitivity 46 ng/L (</=54) Hemoglobin A1c < 3.8 % A1C (<5.7) Lactic Acid Level 1.5 mmol/L (0.4-2.0) Phosphorus Level 3.8 mg/dL (2.4-5.1) Magnesium Level 1.5 mg/dL (1.6-2.6) B-Type Natriuretic Peptide 936.69 pg/mL (0-100) Other Laboratory Tests 12/10/24 06:06 Brief Hx & Hospital Course: History of Present Illness Crow Deleon SR is a 59-year-old male with past medical history of hypertension, CHF, ESRD on HD (M/W/F), right upper arm fistula, right chest wall Port-A-Cath, appendectomy, and PD catheter that was placed in 2019 who presents to the ED with shortness of breath, chest pain, and pedal edema. Patient's Omaira is at the bedside and states that he woke up short of breath around 3:00 a.m. this morning. She reports that he has been receiving his dialysis without missing any appointments. Patient also reports that he takes iron pills which we maybe why his stool is black. Patient denies any fever, chills, recent trauma or injury, lightheadedness, weakness, dizziness, abdominal pain, nausea, vomiting, and diarrhea. Patient's Omaira states that he had the PD cath placed in and cath is still present because recently he had peritonitis and they had stopped using the PD cath. She also reports that the dialysis cath was supposed to be temporary. Patient denies having any bloody or dark stool however RN at bedside states that she saw dark tarry stool. Course of hospitalization: GI consultation was obtained. Patient was placed on PPI. Nephrology consultation was also placed with patient being treated with in-house hemodialysis. Patient was found to be severely hypertensive with antihypertensives titrated. Patient continues to be hypertensive today prior to HD. P.r.n. antihypertensives were prescribed. FOBT is negative. Hemoglobin is stable, improved today from yesterday. Long discussion made with the patient regarding discharge planning. He was agreeable to be discharged home after having hemodialysis today as well as having his blood pressure improved. He will continue all previous home medications as ordered. He will follow up with his established hemodialysis chair time and follow up with his PCP in 1-2 weeks. This was also discussed with the primary nurse. Physical examination General: Alert and Oriented x3. No acute distress. Well-nourished. Obese Eyes: EOMI. Anicteric. HENT: Moist mucous membranes. Lungs: Clear to auscultation bilaterally. No accessory muscle use. Cardiovascular: Regular rate and rhythm. No murmur. No JVD. Abdomen: Soft, non-tender and non-distended. No palpable masses. Extremities: No edema. Non-tender. Skin: No rashes or lesions. Warm. Neurologic: No focal neurological deficits. CN II-XII grossly intact, but not individually tested. Psychiatric: Cooperative. Appropriate mood and affect. Total time spent with patient discussing and formulating plan of care: 35 minutes. This medical document was created using an electronic medical record system with [employer] dictation system. Although this document has been carefully reviewed, there may still be some phonetic and typographical errors. These areas are purely typographical due to imperfections of the software programs, and do not reflect any compromise in the patient's medical care. Consults/Reason for consult Nephrology: ESRD with hemodialysis Gastroenterology: Questionable GI bleed Condition at Discharge: Guarded Final Diagnosis/Problems List Acute hypoxic respiratory failure secondary to pulmonary vascular congestion Secondary diagnosis: Hypertensive crisis Primary hypertension ESRD with hemodialysis Acute hypoxic respiratory failure GI bleed ruled out Anemia chronic disease Discharge Disposition: Home Discharge Instruct/Medications Diet: Cardiac 2g Na,low cholest, Renal Activity: No Restrictions, As Tolerated Follow Up/Referral: Follow up with PCP in 1-2 weeks Follow up with established hemodialysis chair time Medications: Continue all home medications per medication reconciliation form 36 Discharge Statement: "Patient was advised to return to the ER or call 911 if any headaches, dizziness, shortness of breath, chest pain, abdominal pain, bleeding, fevers, or worsening of medical condition. Patient was counseled about treatment plan, medications, possible side effects, patientverbalized understanding. All questions were answered to the best of my ability. This discharge took greater then 30 minutes in planning, reviewing documentation, counseling the patient, and discussing with other team members." ASSESSMENT ASSESSMENT Assessment Acute hypoxic respiratory failure secondary to pulmonary vascular congestion Date of Service: Dec 10, 2024 Billing Provider: SHEYLA CRISTOBAL NP Common Visit Codes: [id number] DISCH DAY >30min SHEYLA CRISTOBAL NP Dec 10, 2024 11:11
[2024-12-10] MEDS: LOSARTAN POTASSIUM 25 MG TAB PO ONE (17:22)
[2024-12-10] MEDS: cloNIDine HCL 0.1 MG TAB PO PRN (18:31)
[2024-12-10] MEDS: amLODIPine BESYLATE 5 MG TAB PO ONE (19:39)
[2024-12-11 01:00] VITALS: BP 166/93; PULSE 56; RESP 15; TEMP 97.7; O2SAT 96
[2024-12-11 05:00] VITALS: BP 146/88; PULSE 61; RESP 16; TEMP 98.1; O2SAT 98
[2024-12-11 08:00] VITALS: PULSE 58
[2024-12-11 09:00] VITALS: BP 173/93; PULSE 60; RESP 20; TEMP 98.1; O2SAT 99
[2024-12-11] MEDS: LOSARTAN POTASSIUM 25 MG TAB PO SCH (09:29)
--- NOTE | 2024-12-11 12:38 | DVHPN2 ---
Progress Note Date Seen: Dec 11, 2024 Medical Necessity Reason Pt with a Central, PICC or Fol: No Subjective Patient reports: No new complaints Review of Systems: Deferred Objective vital signs Vital Sign Date Time Temp Pulse Resp B/P (MAP) Pulse Ox O2 Delivery O2 Flow Rate FiO2 12/11/24 11:58 164/86 12/11/24 09:32 60 12/11/24 08:00 Room Air* 0 21 12/11/24 05:00 98.1 16 98 98.1 Total Intake and Output 12/10/24 12/10/24 12/11/24 15:00 23:00 07:00 Intake Total 500 ml 900 ml Output Total 550 ml Balance -50 ml 900 ml medications Current Medications Medications Dose Ordered Sig/George Route Start Time Stop Time Status Last Admin Dose Admin Acetaminophen/ Hydrocodone Bitart 1 tab Q4HP PRN PO 12/06/24 07:30 Ondansetron HCl 4 mg Q4HP PRN IV 12/06/24 07:30 Acetaminophen 650 mg Q6HP PRN PO 12/06/24 07:30 Calcitriol 0.25 mcg DAILY PO 12/06/24 10:00 12/11/24 09:30 0.25 MCG Ferrous Sulfate 325 mg DAILY PO 12/06/24 10:00 12/11/24 09:31 325 MG Sevelamer HCl 800 mg TIDWM PO 12/06/24 12:00 12/11/24 11:57 800 MG Epoetin Rodrigo-epbx 8,000 unit POSTDI@2100 SC 12/06/24 21:00 12/10/24 20:29 8,000 UNIT Isosorbide Mononitrate 60 mg DAILY PO 12/07/24 10:00 12/11/24 09:30 60 MG Labetalol HCl 10 mg Q4HP PRN IV 12/07/24 10:15 12/09/24 05:24 10 MG Furosemide 40 mg DAILY PO 12/08/24 10:00 12/11/24 09:30 40 MG Pantoprazole Sodium 40 mg DAILY@0600 PO 12/08/24 06:00 12/11/24 05:07 40 MG Nifedipine 90 mg DAILY PO 12/09/24 10:00 12/11/24 09:31 90 MG Tamsulosin HCl 0.4 mg HS PO 12/08/24 22:00 12/10/24 21:16 0.4 MG Carvedilol 12.5 mg Q12HR PO 12/09/24 22:00 12/10/24 09:07 12.5 MG Clonidine HCl 0.2 mg Q7D TD 12/09/24 14:30 12/10/24 09:09 0.2 MG Losartan Potassium 75 mg DAILY PO 12/11/24 10:00 12/11/24 09:29 75 MG Clonidine HCl 0.2 mg Q6HP PRN PO 12/10/24 17:15 12/11/24 10:55 0.2 MG Examination: GENERAL:Normal, HEENT:Normal, NECK:Normal, LUNGS:Normal, CVS:Normal, ABDOMEN:Normal, MSK:Abnormal, SKIN:Normal, NEURO:Normal, :Normal laboratory and microbiology Laboratory Tests 12/10/24 06:06 Test 12/10/24 06:06 Range/Units Serum Glucose 89 74-106 mg/dL Problem List/Assessment/Plan Problem List/Assessment/Plan ESRD on dialysis Hypertensive emergency acute on chronic Congestive heart failure exacerbation Recommendations HD next friday if still here Blood pressure control UF as tolerated Plan discussed with: Patient CC Plasma Assessment Blood Product Administration S: [id number] MARGARITO LATIF MD Dec 11, 2024 12:38
[2024-12-11 13:00] VITALS: BP 164/86; PULSE 57; RESP 20; TEMP 97.2; O2SAT 100
--- NOTE | 2024-12-11 13:17 | DVHPN2 ---
Subjective The patient is seen and examined at bedside. The patient is supposed to be discharged yesterday however discharge was hold due to blood pressure uncontrolled Reviewed: Care Plan, Labs, Medications, Previous Orders, Radiology Changes from previous H/P or p: No Changes Cardiovascular: Chest Pain Respiratory: Shortness of breath Objective Vitals Vital Signs Date Time Temp Pulse Resp B/P (MAP) Pulse Ox O2 Delivery O2 Flow Rate FiO2 12/11/24 13:00 97.2 57 20 164/86 (112) 100 97.2 12/11/24 08:00 Room Air* 0 21 Intake/Output Intake and Output 12/11/24 07:00 Intake Total 1400 ml Output Total 550 ml Balance 850 ml Intake Oral 1400 ml Output Urine Total 550 ml # Voids 2 General Appearance: Alert, Cooperative HEENT: Atraumatic, PERRLA, EOMI, Mucous membr. moist/pink Neck: Supple Lungs: Clear to auscultation, Normal air movement Cardiovascular: Regular rate, Normal S1, Normal S2, No murmurs, Gallops, Rubs Abdomen: Normal bowel sounds, Soft, No tenderness Neuro: Cranial nerves 3-12 NL Psych/Mental Status: Mental status NL Medications Current Medications Medications Dose Ordered Sig/George Route Start Time Stop Time Status Last Admin Dose Admin Acetaminophen/ Hydrocodone Bitart 1 tab Q4HP PRN PO 12/06/24 07:30 Ondansetron HCl 4 mg Q4HP PRN IV 12/06/24 07:30 Acetaminophen 650 mg Q6HP PRN PO 12/06/24 07:30 Calcitriol 0.25 mcg DAILY PO 12/06/24 10:00 12/11/24 09:30 0.25 MCG Ferrous Sulfate 325 mg DAILY PO 12/06/24 10:00 12/11/24 09:31 325 MG Sevelamer HCl 800 mg TIDWM PO 12/06/24 12:00 12/11/24 11:57 800 MG Epoetin Rodrigo-epbx 8,000 unit POSTDI@2100 SC 12/06/24 21:00 12/10/24 20:29 8,000 UNIT Isosorbide Mononitrate 60 mg DAILY PO 12/07/24 10:00 12/11/24 09:30 60 MG Labetalol HCl 10 mg Q4HP PRN IV 12/07/24 10:15 12/09/24 05:24 10 MG Furosemide 40 mg DAILY PO 12/08/24 10:00 12/11/24 09:30 40 MG Pantoprazole Sodium 40 mg DAILY@0600 PO 12/08/24 06:00 12/11/24 05:07 40 MG Nifedipine 90 mg DAILY PO 12/09/24 10:00 12/11/24 09:31 90 MG Tamsulosin HCl 0.4 mg HS PO 12/08/24 22:00 12/10/24 21:16 0.4 MG Carvedilol 12.5 mg Q12HR PO 12/09/24 22:00 12/10/24 09:07 12.5 MG Clonidine HCl 0.2 mg Q7D TD 12/09/24 14:30 12/10/24 09:09 0.2 MG Losartan Potassium 75 mg DAILY PO 12/11/24 10:00 12/11/24 09:29 75 MG Clonidine HCl 0.2 mg Q6HP PRN PO 12/10/24 17:15 12/11/24 10:55 0.2 MG Laboratory Results Laboratory Tests 12/10/24 06:06 Urinalysis Test 12/08/24 17:31 Urine Color Light-yellow (Yellow) Urine Clarity Clear (Clear) Urine pH 8.0 (5.0-9.0) Urine Specific [place] 1.007 (1.001-1.035) Urine Protein 1+ (Negative) H Urine Ketones Negative (Negative) Urine Blood Negative /uL (Negative) Urine Nitrite Negative (Negative) Urine Bilirubin Negative (Negative) Urine Urobilinogen Normal mg/dL (Negative) Urine Leukocyte Esterase Negative /uL (Negative) Urine RBC 5 /hpf (0 - 3) Urine Microscopic WBC 6 /HPF (0-3) H Urine Squamous Epithelial Cells None seen /hpf (<5) Urine Bacteria None seen /hpf (None Seen) Urine Glucose Trace mg/dL (Normal) Labs and/or images reviewed: Labs reviewed by me Assessment/Plan Assessment/Plan #1 acute resp failure: cont oxygen #2 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 His systolic blood pressure today is in a 160. Patient is dialysis patient and this is his baseline blood pressure so I am going to discharge the patient home today. Plan discussed with: Patient Date of Service: Dec 11, 2024 Billing Provider: VIVIANA GASTELUM MD Common Visit Codes: [id number] INP/OBS CARE(HIGH) VIVIANA GASTELUM MD Dec 11, 2024 13:17
== END 2024-12-11 13:10 | disposition home or self-care (01) | DRG 291 ==
LOC: ER 04:15 → EDBD 04:15 → OVERFLOW 07:20 → TELE-EAST 12-07 22:22
PROVIDERS: ADMIT Nurse Practitioner Acute Care; ATTEND Nurse Practitioner Acute Care
PROC: 5A09357 Assistance with Respiratory Ventilation, Less than 24 Consecutive Hours, Continuous Positive Airway Pressure (ICD-10-PCS; 2024-12-06)
PROC: 5A1D70Z Performance of Urinary Filtration, Intermittent, Less than 6 Hours Per Day (ICD-10-PCS; 2024-12-06)
PROC: 30233N1 Transfusion of Nonautologous Red Blood Cells into Peripheral Vein, Percutaneous Approach (ICD-10-PCS; principal; 2024-12-07)
PROC: 5A1D70Z Performance of Urinary Filtration, Intermittent, Less than 6 Hours Per Day (ICD-10-PCS; 2024-12-07)
PROC: 5A1D70Z Performance of Urinary Filtration, Intermittent, Less than 6 Hours Per Day (ICD-10-PCS; 2024-12-08)
PROC: 5A1D70Z Performance of Urinary Filtration, Intermittent, Less than 6 Hours Per Day (ICD-10-PCS; 2024-12-10)
DX: I13.2 Hypertensive heart and chronic kidney disease with heart failure and with stage 5 chronic kidney disease, or end stage renal disease (principal); I50.43 Acute on chronic combined systolic (congestive) and diastolic (congestive) heart failure; J96.01 Acute respiratory failure with hypoxia; N18.6 End stage renal disease; E87.1 Hypo-osmolality and hyponatremia; I16.1 Hypertensive emergency; E83.42 Hypomagnesemia; D63.8 Anemia in other chronic diseases classified elsewhere; E11.22 Type 2 diabetes mellitus with diabetic chronic kidney disease; Z99.2 Dependence on renal dialysis; Z88.8 Allergy status to other drugs, medicaments and biological substances; Z79.84 Long term (current) use of oral hypoglycemic drugs; Z79.899 Other long term (current) drug therapy; Z79.1 Long term (current) use of non-steroidal anti-inflammatories (NSAID); Z79.891 Long term (current) use of opiate analgesic
CPT/HCPCS: 36415; 36600; 71045; 80048; 80053; 80074; 81001; 82270; 82805; 82962; 83036; 83605; 83735; 83880; 84100; 84484; 85025; 85610; 85730; 86850; 86900; 86901; 86920; 90935; 93005; 93306; 94660; 96374; 99291; G0378; J1642